=== PATIENT | female | born 1945 | race Caucasian/White ===

== ENCOUNTER 2022-07-25 09:11 | Day surgery (SDC) | payer MEDICARE, OTHER ==
[~2022-07-25] VITALS: Ht 162.6 cm; Wt 85.8 kg
[2022-07-25] MEDS ORDERED: Children's Che1 EAC1 (09:25)
[2022-07-25] MEDS ORDERED: ERGO400 (09:25)
[2022-07-25] MEDS ORDERED: Metrogel 1% 6060 GM (09:25)
--- NOTE | 2022-07-25 09:42 | NUR ---
07/25/22 0942 SIOMARA TARIQ TETRACAINE DROP PLACED AT 0929, PLEDGETTE PLACED AT 0931
--- NOTE | 2022-07-25 11:55 | NUR ---
07/25/22 1155 Nishant Muñoz pt belongings belt bag and sweater, eyeglasses given back to pt, pt vu d/c insteructions, no c/o pain, n/v, denies any needs.
== END 2022-07-25 11:55 | disposition home or self-care (01) ==
LOC: ORSCSDS 09:11
PROVIDERS: Student in an Organized Health Care Education/Training Program
PROC: 08DJ3ZZ Extraction of Right Lens, Percutaneous Approach (ICD-10-PCS; principal; 2022-07-25 10:30)
DX: H25.13 Age-related nuclear cataract, bilateral (principal); E66.9 Obesity, unspecified; Z68.32 Body mass index [BMI] 32.0-32.9, adult; H40.9 Unspecified glaucoma; Z79.899 Other long term (current) drug therapy
CPT/HCPCS: J2001; J2250; J3010; J7040; V2632

== ENCOUNTER 2022-08-01 09:44 | Day surgery (SDC) | payer MEDICARE, OTHER ==
[~2022-08-01] VITALS: Ht 162.6 cm; Wt 85.8 kg
[~2022-08-01 09:44] MED LIST: Children's Che1 EAC1; ERGO400; Metrogel 1% 6060 GM
--- NOTE | 2022-08-01 10:04 | NUR ---
08/01/22 1004 Sylvester Byrnes CALL LIGHT WITHIN REACH. TETRACAINE AT 1000 IN THE LEFT EYE AND PLEDGETT AT 1002
--- NOTE | 2022-08-01 11:47 | NUR ---
08/01/22 1147 Reilly Friedman PT'S HEART RATE WAS NOTED TO BE IRREGULAR FOLLOWING PROCEDURE. PT STATED SHE WAS AWARE OF THE IRREGULAR HEART RATE AND HAD EXPERIENCED IT FOR A LONG TIME. DR. COLIN WAS INFORMED. DR. COLIN STATED PATIENT WAS OKAY TO DISCHARGE WITH IRREGULAR HEART RATE. PT WAS ADVISED TO FOLLOW UP WITH PCP TOAN REGARDING HYPERTENSION.
== END 2022-08-01 11:35 | disposition home or self-care (01) ==
LOC: ORSCSDS 09:44
PROVIDERS: Student in an Organized Health Care Education/Training Program
PROC: 08RK3JZ Replacement of Left Lens with Synthetic Substitute, Percutaneous Approach (ICD-10-PCS; principal; 2022-08-01 11:15)
DX: H25.12 Age-related nuclear cataract, left eye (principal)
CPT/HCPCS: J2001; J2250; J3010; J7040; V2632

== ENCOUNTER → 2025-09-22 | Outpatient (CLI) | payer MEDICARE, OTHER ==
[2025-09-22 12:02] LABS: BASOPHILS ABSOLUTE AUTO 0.06 K/mm3 (0.00-0.23); BASOPHILS PERCENT AUTO 1 % (0-2); EOSINOPHILS ABSOLUTE AUTO 0.48 K/mm3 (0.00-0.68); EOSINOPHILS PERCENT AUTO 7 % (0-6); Hematocrit 40.4 % (33.0-51.0); Hemoglobin 13.0 g/dL (11.5-16.0); IMMATURE GRAN ABSOLUTE AUTO 0.02 K/mm3 (0.00-0.10); IMMATURE GRAN PERCENT AUTO 0 % (0-1); LYMPHOCYTES ABSOLUTE AUTO 1.54 K/mm3 (0.84-5.20); LYMPHOCYTES PERCENT AUTO 24 % (21-46); MONOCYTES ABSOLUTE AUTO 0.61 K/mm3 (0.16-1.47); MONOCYTES PERCENT AUTO 9 % (4-13); Mean Corpuscular HGB Conc 32.2 g/dL (31.5-36.5); Mean Corpuscular Volume 92 fL (80-100); NEUTROPHILS ABSOLUTE AUTO 3.76 K/mm3 (1.96-9.15); NEUTROPHILS PERCENT AUTO 58 % (41-73); NRBC ABSOLUTE 0.00 K/mm3 (0.00-0.02); NRBC Auto 0.0 /100 WBC (0.0-0.2); Platelet Count 287 K/mm3 (150-400); RDW Coefficient Variation 13.2 % (11.7-14.2); RDW Standard Deviation 45.1 fL (35.1-46.3)
== END | disposition home or self-care (01) ==
LOC: LAB 08:35 → LAB SHORT 08:35
PROVIDERS: Family Medicine
DX: Z51.81 Encounter for therapeutic drug level monitoring (principal); Z79.01 Long term (current) use of anticoagulants
CPT/HCPCS: 36415; 85025